=== PATIENT | male | born 1975 | race Caucasian/White ===

== ENCOUNTER 2017-06-12 09:28 | Emergency (ER) | payer BC ==
--- NOTE | 2017-06-12 09:53 | ED ---
General Adult HPI - General Chief complaint: Abdominal Pain Stated complaint: Lower back pain Time Seen by Provider: 06/12/17 09:36 Source: patient, RN notes reviewed Mode of arrival: ambulatory Limitations: no limitations - History of Present Illness Initial comments: Patient 42-year-old male who presents emergency room today with a chief complaint of left-sided lower back pain over the last 2 or 3 days. Patient denies any specific injury or trauma. He does admit that he has been experiencing some discomfort left side is worse with certain movements. He states he was bladder when he was trying to get in and out of the car. Patient advised that [facility] on him so some blood and was advised complete emergency room for further evaluation. Patient denies any other complaints or symptoms. Patient denies any recent fever , chills, shortness of breath, chest pain, abdominal pain, nausea or vomiting, numbness or tingling, dysuria or hematuria, constipation or diarrhea, headaches or visual changes, or any other complaints. - Related Data Previous Rx's Medication Instructions Recorded Cyclobenzaprine [Flexeril] 10 mg PO TID #20 tab 06/12/17 Ibuprofen [Motrin] 600 mg PO Q6HR PRN #40 day 06/12/17 Allergies Allergy/AdvReac Type Severity Reaction Status Date / Time Sulfa (Sulfonamide Allergy Rash/Hives Verified 06/12/17 09:33 Antibiotics) Review of Systems ROS Statement: Those systems with pertinent positive or pertinent negative responses have been documented in the HPI. ROS Other: All systems not noted in ROS Statement are negative. Past Medical History Past Medical History: No Reported History History of Any Multi-Drug Resistant Organisms: MRSA Date of last positivie culture/infection: 2014 MDRO Source:: right thigh Additional Past Surgical History / Comment(s): left pectoral surgery Past Psychological History: No Psychological Hx Reported Smoking Status: Never smoker Past Alcohol Use History: None Reported Past Drug Use History: None Reported General Exam - General Exam Comments Initial Comments: General: The patient is awake and alert, in no distress, and does not appear acutely ill. Eye: Pupils are equal, round and reactive to light, extra-ocular movements are intact. No nystagmus. There is normal conjunctiva bilaterally. No signs of icterus. Ears, nose, mouth and throat: There are moist mucous membranes and no oral lesions. Neck: The neck is supple, there is no tenderness or JVD. Cardiovascular: There is a regular rate and rhythm. No murmur, rub or gallop is appreciated. Respiratory: Lungs are clear to auscultation, respirations are non-labored, breath sounds are equal. No wheezes, stridor, rales, or rhonchi. Gastrointestinal: Soft, non-distended, non-tender abdomen without masses or organomegaly noted. There is no rebound or guarding present. No CVA tenderness. Bowel sounds are unremarkable. Musculoskeletal: Normal ROM, no tenderness. Strength 5/5. Sensation intact. Pulses equal bilaterally 2+. Neurological: A&O x 3. CN II-XII intact, There are no obvious motor or sensory deficits. Coordination appears grossly intact. Speech is normal. Skin: Skin is warm and dry and no rashes or lesions are noted. Psychiatric: Cooperative, appropriate mood & affect, normal judgment. Limitations: no limitations Course Vital Signs 06/12/17 09:28 Temperature 98.2 F Pulse Rate 71 Respiratory 18 Rate Blood Pressure 149/89 O2 Sat by Pulse 99 Oximetry Medical Decision Making - Medical Decision Making Patient's urinalysis reviewed shows no evidence of blood. No sign of infection. X-rays reviewed negative for any acute abnormality. Results were discussed with the patient. Was discussed with the possibility of a kidney stone. There is no blood in his urine patient was sent by medics present for CT. Was discussed with patient. His pain is reproduced with movements. He states that that makes it worse. He is comfortable when he sits chills. Patient will be started on most relaxant advised that may make him drowsy. Also anti-inflammatories for pain. He was offered Toradol here has declined. Patient will be discharged home advised follow family doctor return if symptoms increase or worsen or for any other concerns. - Lab Data Lab Results 06/12/17 Range/Units 09:57 Urine Color Yellow Urine Appearance Clear (Clear) Urine pH 5.5 (5.0-8.0) Ur Specific [place] 1.024 (1.001-1.035) Urine Protein Trace H (Negative) Urine Glucose (UA) Negative (Negative) Urine Ketones Negative (Negative) Urine Blood Negative (Negative) Urine Nitrite Negative (Negative) Urine Bilirubin Negative (Negative) Urine Urobilinogen <2.0 (<2.0) mg/dL Ur Leukocyte Esterase Negative (Negative) Disposition Clinical Impression: Acute low back pain Disposition: HOME SELF-CARE Condition: Good Instructions: Acute Low Back Pain (ED) Additional Instructions: Please use medication as discussed. please be aware that medications may make you drowsy. Please follow-up with family doctor in the next 2 days of symptoms have not improved. Please return to emergency room if the symptoms increase or worsen or for any other concerns. Prescriptions: Cyclobenzaprine [Flexeril] 10 mg PO TID #20 tab Ibuprofen [Motrin] 600 mg PO Q6HR PRN #40 day PRN Reason: Pain Referrals: Lenny La DO [Primary Care Provider] - 1-2 days Time of Disposition: 10:51
[2017-06-12 10:21] LABS: Appearance,Urine Clear (Clear); Bilirubin,Urine Negative (Negative); Blood,Urine Negative (Negative); Color,Urine Yellow; Glucose,Urine (UA) Negative (Negative); Ketones,Urine Negative (Negative); Leukocyte Esterase,Urine Negative (Negative); Nitrite,Urine Negative (Negative); PH, Urine 5.5 (5.0-8.0); Protein,Urine Trace (Negative); Specific Gravity,Urine 1.024 (1.001-1.035); Urobilinogen,Urine <2.0 mg/dL (<2.0)
--- NOTE | 2017-06-12 10:33 | XR ---
EXAMINATION TYPE: XR KUB DATE OF EXAM: 06/12/2017 COMPARISON: NONE HISTORY: Pain TECHNIQUE: Single supine KUB image of the abdomen is obtained FINDINGS: Small bowel demonstrates no evidence for dilatation or air fluid levels. Gas and fecal material is seen in non-distended colon. No convincing evidence for pneumoperitoneum. No unusual calcifications. The lung bases are clear. The osseous structures are intact. IMPRESSION: 1. Overall nonobstructive bowel gas pattern.
--- NOTE | 2017-06-12 10:35 | XR ---
EXAMINATION TYPE: XR lumbar spine 2 or 3V DATE OF EXAM: 06/12/2017 CLINICAL HISTORY: Left flank and back pain with no known injury TECHNIQUE: Frontal and lateral images of the lumbar spine are obtained. COMPARISON: None FINDINGS: There are 5 lumbar type vertebral bodies identified. There is grade 2 anterolisthesis of L 5 on S1 with pars interarticularis defects. The remainder of the lumbar spine maintains normal alignm ent. Vertebral body heights are maintained. Mild multilevel degenerative are seen and displayed as sm all anterior osteophytes, endplate sclerosis and lumbosacral junction facet arthropathy. The overlyin g soft tissue appears unremarkable. IMPRESSION: 1. Grade 2 anterolisthesis of L5 on S1 secondary to pars interarticularis defects. 2. No acute fracture of the lumbar spine. 3. Mild multilevel degenerative changes of the lumbar spine.
--- NOTE | 2017-06-12 12:25 | CT ---
EXAMINATION TYPE: CT abdomen pelvis wo con DATE OF EXAM: 06/12/2017 COMPARISON: NONE HISTORY: Lt flank pain CT DLP: 837 mGycm Examination of the solid and hollow viscera is limited given the lack of contrast. FINDINGS: LUNG BASES: No evidence for nodule. No evidence for infiltrate. LIVER/GB: The gallbladder is unremarkable. No space-occupying hepatic lesion. PANCREAS: No pancreatic mass identified. No inflammatory process seen. SPLEEN: No evidence for splenomegaly. No intrasplenic lesions seen. ADRENALS: No adrenal nodules identified. No evidence for thickening. KIDNEYS: No evidence for renal mass. No nephrolithiasis. No hydronephrosis. BOWEL: Appendix has a normal appearance. No evidence of bowel obstruction. No inflammatory process. Lymph nodes: No evidence for adenopathy greater than 1 cm. Abdominal aorta: Atheromatous changes seen. No evidence for aneurysm. Genital organs: Central prostate gland calcifications. Other: Fat-containing inguinal hernias right greater than left. Grade 1 anterolisthesis L5 on S1 with vacuum disc changes. IMPRESSION: 1. No significant abnormality to account for the patient's symptoms.
[2017-06-13 22:59] VITALS: BP 151/95; PULSE 71; RESP 18; TEMP 98.2
== END 2017-06-12 12:48 | disposition home or self-care (01) ==
LOC: EC 09:28
DX: M54.5 Low back pain (principal); R10.9 Unspecified abdominal pain; Z88.2 Allergy status to sulfonamides; Z86.14 Personal history of Methicillin resistant Staphylococcus aureus infection
CPT/HCPCS: 72100; 74018; 74176; 81003; 87086; 99284

== ENCOUNTER → 2019-08-12 | Outpatient (CLI) | payer BC | END | disposition home or self-care (01) | LOC: LABWHC1 08:29 | PROVIDERS: ATTEND Urology | DX: N40.1 Benign prostatic hyperplasia with lower urinary tract symptoms (principal); R97.20 Elevated prostate specific antigen [PSA] | CPT/HCPCS: 36415; 84153 ==

== ENCOUNTER → 2020-08-09 | Outpatient (CLI) | payer BC | END | disposition home or self-care (01) | LOC: LABWHC1 08:48 | PROVIDERS: ATTEND Urology | DX: R97.20 Elevated prostate specific antigen [PSA] (principal) | CPT/HCPCS: 36415; 84153 ==

== ENCOUNTER → 2020-11-12 | Outpatient (CLI) | payer BC | END | disposition home or self-care (01) | LOC: LABWHC1 08:26 | PROVIDERS: ATTEND Surgery | DX: Z20.822 Contact with and (suspected) exposure to COVID-19 (principal) | CPT/HCPCS: U0003; C9803; U0005 ==

== ENCOUNTER 2020-11-19 08:03 | Day surgery (SDC) | payer BC ==
[2020-11-17 11:06] VITALS: BMI 31.0
[~2020-11-19 08:03] MED LIST: LACTATED RINGERS 1,000 ML IV SCH
[2020-11-19 08:27] VITALS: BP 146/86; PULSE 61; RESP 16; TEMP 97.5
[2020-11-19] MEDS ORDERED: LIDOCAINE 1% (10MG/ML) FOR IV START INTRADERMA ONE (08:36)
[2020-11-19] MEDS ORDERED: PROPOFOL 10 MG/ML 20 ML VIAL IV ONE (09:05)
--- NOTE | 2020-11-19 09:27 | P.HPIHPCON ---
History of Present Illness H&P Date: 11/19/20 45-year-old male presents today for colonoscopy. He has had recent episodes of blood in stool. He states that since that time, this is mostly resolved. He is unsure of any family history of colon cancer but does believe his mother has had abnormalities found on previous colonoscopies. Consent for Procedure: I have explained the operation/procedure to the patient, including the risks, benefits, side effects, alternative therapies (including not receiving the proposed treatment or service), the likelihood of the patient achieving his/her goals, and potential recuperation problems for the procedure/sedation/analgesia, as well as any blood products, if indicated. I also explained to the patient the risks, benefits and side effects of the alternatives, as well as the risks related to not receiving the proposed procedure, care, treatment, or services. - Review of Systems All systems: negative Past Medical History Past Medical History: No Reported History Additional Past Medical History / Comment(s): BLOOD IN STOOL AND FEELING BLOATED History of Any Multi-Drug Resistant Organisms: MRSA Date of last positivie culture/infection: 2014 MDRO Source:: right thigh Additional Past Surgical History / Comment(s): left pectoral surgery Past Anesthesia/Blood Transfusion Reactions: No Reported Reaction Smoking Status: Never smoker - Past Family History Father Family Medical History: Cancer Medications and Allergies Home Medications Medication Instructions Recorded Confirmed Type No Known Home Medications 11/17/20 11/19/20 History Allergies Allergy/AdvReac Type Severity Reaction Status Date / Time Sulfa (Sulfonamide Allergy Rash/Hives Verified 11/19/20 08:24 Antibiotics) Surgical - Exam Osteopathic Statement: *. No significant issues noted on an osteopathic structural exam other than those noted in the History and Physical/Consult. Vital Signs Temp Pulse Resp BP Pulse Ox 97.5 F L 61 16 146/86 97 11/19/20 08:25 11/19/20 08:25 11/19/20 08:25 11/19/20 08:25 11/19/20 08:25 - General well nourished, no distress - Respiratory normal respiratory effort - Abdomen Abdomen: soft, non tender Assessment and Plan Plan: 45-year-old male with blood in his stool. Plan is for colonoscopy. Further recommendations to be made after procedure. Risks, benefits and alternatives were provided to the patient.
--- NOTE | 2020-11-19 09:28 | P.PCN ---
Date of Procedure: 11/19/20 Preoperative Diagnosis: Blood in stool Postoperative Diagnosis: Internal hemorrhoids Procedure(s) Performed: Colonoscopy Anesthesia: MAC Surgeon: Ted Alfred Pathology: none sent Condition: stable Disposition: same day Indications for Procedure: 45-year-old male with recent finding of blood in stool. Risks, benefits and alternatives were provided to the patient. He presents for colonoscopy. Operative Findings: Internal hemorrhoids Description of Procedure: The patient was brought into the endoscopy suite and placed in left lateral decubitus position and adequate sedation was achieved using conscious sedation. A digital rectal exam was performed and internal hemorrhoids were palpated. An endoscope was then placed in the rectum and advanced to the cecum as identified by landmarks including the appendiceal orifice and ileocecal valve. The prep was good. The colonoscope was then slowly withdrawn, examining for any mucosal abnormalities. The cecum, ascending, transverse, descending and sigmoid colon were visualized adequately. There were no large neoplastic lesions noted throughout the colon. There were no obvious polyps noted throughout the colon. No significant diverticulosis was noted throughout the colon. Retroflexion was performed in the rectum and internal hemorrhoids were visible. Excess air was removed, the colonoscope withdrawn and the procedure terminated. The patient was then transferred to recovery unit in stable condition. Repeat colonoscopy should be performed at age 51 for continuation of screening.
== END 2020-11-19 09:58 | disposition home or self-care (01) ==
LOC: ORWHC2ENDO 08:03
PROVIDERS: ATTEND Surgery
DX: K64.8 Other hemorrhoids (principal); Z88.2 Allergy status to sulfonamides
CPT/HCPCS: 45378; J2704

== ENCOUNTER → 2021-08-03 | Outpatient (CLI) | payer BC ==
--- NOTE | 2021-08-03 16:11 | EST ---
EXERCISE STRESS AGE: 46 SEX: M HT: 5'7" WT: 200 lbs. PROTOCOL: Alexis STAGE: 5 DURATION OF EXERCISE: 13:23 HEART RATE REST: 79 BLOOD PRESSURE REST: 135/94 MAXIMUM HEART RATE ACHIEVED: 165 MAXIMUM BLOOD PRESSURE: 190/94 85% MPHR: 149 100% MPHR: 175 METS: 13.9 INDICATIONS: Shortness of breath RESULTS: Baseline rhythm is sinus mechanism, rate of 79, borderline right axis deviation. Baseline blood pressure 135/94 mmHg. Patient exercised on Alexis protocol for 13 minutes and 23 seconds reaching peak rate 163 beats per minute, which was equal to 94% maximum predicted heart rate. Peak blood pressure 162/98 mmHg. Test was terminated secondary to fatigue. No chest pain. Electrocardiographic monitoring revealed rare PVCs. There was no evidence of diagnostic ischemic ST deviation. CONCLUSION: 1. Good exercise tolerance with rare PVCs. 2. Normal electrocardiographic response to exercise with no evidence of exercise- induced ischemia. MMODL / IJN: [id number] /
== END | disposition home or self-care (01) ==
LOC: RADNMMAIN 08:14
PROVIDERS: ATTEND Family Medicine
DX: I49.3 Ventricular premature depolarization (principal)
CPT/HCPCS: 93017

== ENCOUNTER → 2022-09-19 | Outpatient (CLI) | payer BC | END | disposition home or self-care (01) | LOC: LABWHC1 07:15 | PROVIDERS: ATTEND Urology | DX: R97.20 Elevated prostate specific antigen [PSA] (principal) | CPT/HCPCS: 36415; 84153 ==

== ENCOUNTER → 2022-10-21 | Outpatient (CLI) | payer BC ==
--- NOTE | 2022-10-22 12:14 | MR ---
EXAMINATION TYPE: MR Prostate wo/w con DATE OF EXAM: 10/21/2022 9:05 AM COMPARISON: CT abdomen pelvis 06-30 CLINICAL INDICATION:Male, 47 years old with history of R97.20 elevated PSA; TECHNIQUE: Multi-planar, multi-sequence imaging of the pelvis is performed prior to and following the uncomplicated administration of bolus intravenous gadolinium. CONTRAST: 9 cc Gadavist. Interpretive Criteria: PI-RADS v2.1 SERUM PSA: 4.4 on 07/31/2022 2.5 on 09/13/2021 SURGICAL PATHOLOGY: Benign biopsy on 09/05/2017. FINDINGS: Prostatic dimensions: 5.2 x 6.1 x 4.3 cm. Ellipsoid Volume:71.42 (PSA density=0.06 ng/mL/mL) CENTRAL GLAND (Central and Transition Zones/CZ+TZ): Multiple bilateral, heterogenous appearing hypertrophic stromal nodules, without suspicious lesion. M edian lobe hypertrophy with protrusion into the base of the bladder. (PI-RADS 2) PERIPHERAL ZONE (PZ): Bilateral linear, indistinct wedgelike areas of low ADC, and low T2 signal, No evidence of masslike a bnormality, or localized perfusional hypervascularity, to further suggest a focus of clinically signi ficant prostate cancer. (PI-RADS 2) SEMINAL VESICLES (SV): Symmetric and unremarkable. PERIPROSTATIC TISSUES: Unremarkable. LYMPH NODES: No enlarged pelvic lymph node. REMAINING PELVIS: Bladder wall is within normal limits given distention. No abnormal free or organized intrapelvic fluid collection. No pathologic bowel dilation or mural thickening. OSSEOUS STRUCTURES: No suspicious osseous abnormality. IMPRESSION: 1. No specific features for high-risk prostate cancer. Maximum PI-RADS score: 2. 2. Moderate BPH, estimated gland volume 71 mL.
== END | disposition home or self-care (01) ==
LOC: RADMRIMAIN 08:09
PROVIDERS: ATTEND Urology
DX: N40.0 Benign prostatic hyperplasia without lower urinary tract symptoms (principal); R97.20 Elevated prostate specific antigen [PSA]
CPT/HCPCS: 72197; A9585

== ENCOUNTER → 2023-02-09 | Outpatient (CLI) | payer BC | END | disposition home or self-care (01) | LOC: LABWHC1 08:30 | PROVIDERS: ATTEND Urology | DX: R97.20 Elevated prostate specific antigen [PSA] (principal) | CPT/HCPCS: 36415; 84153; 84154 ==

== ENCOUNTER → 2024-02-19 | Outpatient (CLI) | payer BC | END | disposition home or self-care (01) | LOC: LABWHC1 09:02 | PROVIDERS: ATTEND Urology | DX: R97.20 Elevated prostate specific antigen [PSA] (principal) | CPT/HCPCS: 36415; 84153; 84154 ==

== ENCOUNTER → 2024-08-19 | Outpatient (CLI) | payer BC | END | disposition home or self-care (01) | LOC: LABWHC1 07:22 | PROVIDERS: ATTEND Urology | DX: R97.20 Elevated prostate specific antigen [PSA] (principal) | CPT/HCPCS: 36415; 84153 ==